=== PATIENT | female | born 1965 | race Caucasian/White ===

== ENCOUNTER 2018-06-25 14:40 | Emergency (ER) | payer MEDICAID ==
[~2018-06-25] VITALS: Ht 154.9 cm; Wt 63.5 kg
[~2018-06-25 14:40] MED LIST: NORPTMEDS CO
[2018-06-25 14:44] VITALS: BP 149/94
== END 2018-06-25 17:01 | disposition home or self-care (01) ==
LOC: ER 14:44
DX: S61.511A Laceration without foreign body of right wrist, initial encounter (principal); F17.210 Nicotine dependence, cigarettes, uncomplicated; W54.0XXA Bitten by dog, initial encounter; Y93.89 Activity, other specified; Y99.8 Other external cause status; Y92.89 Other specified places as the place of occurrence of the external cause
CPT/HCPCS: 12002